=== PATIENT | female | born 1985 | race Caucasian/White ===

== ENCOUNTER 2023-07-09 07:48 | Day surgery (SDC) | payer OTHER ==
[2023-07-09] MEDS ORDERED: Bupivacaine PF 0.5% 30 ML VIAL ONE (08:40)
[2023-07-09] MEDS ORDERED: EPINEPHrine 1 MG/ML AMP ONE (08:40)
[2023-07-09] MEDS ORDERED: SUGAMMADEX SODIUM 200 MG/2 ML VIAL ONE (08:45)
[2023-07-09] MEDS ORDERED: Lidocaine 2% 6 ML (Jelly) SYR ONE (08:45)
[2023-07-09] MEDS ORDERED: Dexmedetomidine 200 MCG/2 ML VIAL ONE (08:45)
[2023-07-09] MEDS ORDERED: Fentanyl 250 MCG/5 ML VIAL ONE (08:45)
[2023-07-09] MEDS ORDERED: Piperacillin/Tazobactam 4.5 GM in Sodium Chloride 0.9% 100 ML IVPB SCH (09:00)
[2023-07-09] MEDS ORDERED: NEOSTIGMINE 3 MG/3 ML SYR 3 MG/3 ML SYRINGE ONE (09:12)
[2023-07-09] MEDS ORDERED: Lidocaine 1% PF 5 ML VIAL ONE (09:12)
[2023-07-09] MEDS ORDERED: Albuterol HFA (OR) 200 PUFF INH ONE (09:12)
[2023-07-09] MEDS ORDERED: Rocuronium Bromide 10 MG/ML (10ML VIAL) ONE (09:12)
[2023-07-09] MEDS ORDERED: Dexamethasone 20 MG/5 ML VIAL ONE (09:12)
[2023-07-09] MEDS ORDERED: Ketorolac Tromethamine 30 MG/ML VIAL ONE (09:12)
[2023-07-09] MEDS ORDERED: Ondansetron PF 4 MG/2 ML Vial ONE (09:12)
[2023-07-09] MEDS ORDERED: Metoprolol Tartrate 5 MG/5 ML VIAL ONE (09:12)
[2023-07-09] MEDS ORDERED: PROPOFOL 200 MG/20 ML VIAL ONE (09:12)
[2023-07-09] MEDS ORDERED: Glycopyrrolate 0.2 MG/ML 5 ML SYRINGE ONE ×2 (09:12)
[2023-07-09] MEDS ORDERED: HYDROcodone/Acetaminophen 5/325 mg Tablet PO PRN ×2 (10:27)
[2023-07-09] MEDS ORDERED: Acetaminophen 325 MG TAB PO PRN (10:27)
[2023-07-09] MEDS ORDERED: fentaNYL 50 mcg/mL 1 mL Vial ONE (10:49)
== END 2023-07-09 13:05 | disposition home or self-care (01) ==
LOC: SDC/OP 07:48
PROVIDERS: ATTEND Surgery
PROC: 0DTJ4ZZ Resection of Appendix, Percutaneous Endoscopic Approach (ICD-10-PCS; principal; 2023-07-09)
DX: K35.80 Unspecified acute appendicitis (principal); E66.01 Morbid (severe) obesity due to excess calories; E03.9 Hypothyroidism, unspecified; F32.A Depression, unspecified; K21.9 Gastro-esophageal reflux disease without esophagitis; Z79.899 Other long term (current) drug therapy; Z87.891 Personal history of nicotine dependence
CPT/HCPCS: 88304; A4649; C1889; J0171; J1100; J1885; J2405; J2543; J2704; J3010; J3490; S0020